=== PATIENT | female | born 1965 | race Caucasian/White ===

== ENCOUNTER 2025-09-27 09:25 | Outpatient (CLI) | payer BC | END 2025-09-27 09:26 | disposition home or self-care (01) | LOC: SCSRAD 09:25 | PROVIDERS: ATTEND Family Medicine | DX: R05.9 Cough, unspecified (principal) | CPT/HCPCS: 71046 ==

== ENCOUNTER 2025-10-05 16:42 | Inpatient (IN) | payer BC ==
[2025-10-05 18:08] VITALS: BMI 36.7
[2025-10-05] MEDS ORDERED: Albuterol 2.5 MG (3 mL) NEB NEB PRN (18:58)
[2025-10-05] MEDS ORDERED: Calcium Carbonate 500 MG ChewTAB PO PRN (18:59)
[2025-10-05] MEDS ORDERED: Acetaminophen 325 MG TAB PO PRN (18:59)
[2025-10-05] MEDS ORDERED: Guaifenesin DM 100-10/5 ML UDCUP PO PRN (18:59)
[2025-10-05] MEDS ORDERED: Ondansetron PF 4 MG/2 ML Vial IVP PRN (18:59)
[2025-10-06 05:11] LABS: #Basophils 0.04 10x3/uL (0.0-0.2); #Eosinophils Less than 0.03 10x3/uL (0.0-0.7); #Monocytes 0.14 10x3/uL (0.11-0.59); #Neutrophils 11.83 10x3/uL (1.40-6.50); %Basophils 0.3 % (0.0-1.0); %Eosinophils 0.1 % (0.0-10.0); %Lymphocytes 10.1 % (21.0-51.0); %Monocytes 1.0 % (0.0-10.0); %Neutrophils 87.2 % (42.0-75.0); Hematocrit 44.6 % (36.0-47.0); Hemoglobin 14.7 g/dL (12.0-16.0); Mean Corpuscular Hemoglobin 28.1 pg (27.0-31.0); Mean Corpuscular Volume 85.1 fL (78.0-98.0); Platelet Count 340 10x3/uL (130-400); Red Blood Cell (RBC) Count 5.24 mill/uL (4.20-5.40); White Blood Cell (WBC) Count 13.57 10x3/uL (4.8-10.8)
[2025-10-06 05:56] LABS: Anion Gap 18 mmol/L (10-20); BUN (Urea Nitrogen) 10 mg/dL (9.8-20.1); Calc. Creatinine Clearance 108 mL/min (70-130); Calcium 10.0 mg/dL (7.8-10.44); Carbon Dioxide 23 mmol/L (22-29); Chloride 107 mmol/L (98-107); Glucose 163 mg/dL (70-105); Potassium 4.3 mmol/L (3.5-5.1); Sodium 144 mmol/L (136-145)
[2025-10-06] MEDS: Enoxaparin 40 MG (0.4 mL) SYRINGE SC SCH (09:02)
[2025-10-06 11:17] LABS: Actual Bicarbonate (HCO3v) 21.4 mEq/L (22-28); Base Excess -3.6 mEq/L (-2.0 to +3.0); Calcium, Ionized (venous) 1.20 mmol/L (1.16-1.32); Chloride (VBG) 103 mmol/L (98-106); Hematocrit-VBG 44 % (36.0-47.0); Hemoglobin (Hb) 15.0 g/dL (11.7-16.0); Potassium (VBG) 3.68 mmol/L (3.70-5.30); Sodium 140 mmol/L (133-146)
[2025-10-06] MEDS: Magnesium 2 GM/50 ML(in water) 2 GM in Premix 1 BAG IVPB SCH (15:25)
[2025-10-06] MEDS: Benzocaine/Menthol 1 LOZ LOZ PO PRN (17:27)
[2025-10-07] MEDS: Pantoprazole 40 MG DR.TAB PO SCH (08:22)
[2025-10-07] MEDS: Mometasone 200 MCG/Formoterol 5 MCG 120 PUFF INHALER INH SCH (19:10)
[2025-10-08] MEDS: predniSONE 20 MG TAB PO SCH (10:40)
[2025-10-08 15:38] VITALS: TEMP 98.3
[2025-10-08 15:51] VITALS: BP 159/103
== END 2025-10-08 16:12 | disposition home or self-care (01) | DRG 202 ==
LOC: PCU 17:35
PROVIDERS: ADMIT Internal Medicine; ATTEND Hospitalist
DX: J45.901 Unspecified asthma with (acute) exacerbation (principal); J96.01 Acute respiratory failure with hypoxia; Z98.890 Other specified postprocedural states; Z98.84 Bariatric surgery status; Z90.49 Acquired absence of other specified parts of digestive tract
CPT/HCPCS: 36415; 71045; 80048; 80053; 82785; 82805; 83605; 83880; 85025; 85379; 93005; 94640; 94664; 94760; 96374; J1650; J2919; J3475; J7120; J7512; J7611; J7626